=== PATIENT | female | born 1950 | race Hispanic/Latino ===

== ENCOUNTER 2022-01-30 12:13 | Observation (INO) | payer MEDICARE, BC ==
[~2022-01-30] VITALS: Ht 152.4 cm; Wt 60.0 kg
[2022-01-30] VITALS (13 sets, daily range): BP systolic 144–239; BP diastolic 65–133
[2022-01-30 13:44] LABS: HEMATOCRIT 38.1 % (37.0-47.0); HEMOGLOBIN 13.6 g/dl (12.0-16.0); IMMATURE GRANULOCYTES 0.1 % (0.0-5.0); MEAN CELL VOLUME 82.1 fL CALC (80.0-100.0); MEAN CORPUSCULAR HGB 29.3 pG CALC (26.0-32.0); MEAN CORPUSCULAR HGB CONC 35.7 g/dL CAL (32.0-36.0); NEUT# 5.12 thou/uL (2.00-7.15); RED BLOOD COUNT 4.64 mill/uL (4.20-5.60)
[2022-01-30 13:51] LABS: ALKALINE PHOSPHATASE 51 u/l (38-126); ANION GAP 16 (6-22 (CALC)); BILIRUBIN, TOTAL 0.7 mg/dL (0.0-1.4); BUN 11 mg/dL (8-23); BUN/CREATININE RATIO 23 (12-20 (CALC)); CARBON DIOXIDE 25 mmol/l (22-30); CHLORIDE 104 mmol/l (95-108); CREATININE 0.5 mg/dL (0.5-1.0); GFR > 60 ML/MIN (>=60 (CALC)); GFR FOR AFR.AMER. > 60 ML/MIN (>=60 (CALC)); POTASSIUM 3.8 mmol/l (3.5-5.1); SGOT/AST 38 u/l (9-36); SODIUM 141 mmol/l (137-146); TOTAL PROTEIN 7.5 g/dL (6.3-8.2)
[2022-01-30 13:52] LABS: ALBUMIN 4.5 g/dL (3.2-5.0)
[2022-01-30 14:03] LABS: MYOGLOBIN 14 ng/mL (0 - 62)
[2022-01-30 14:15] LABS: URINE BILIRUBIN - DIPSTICK NEGATIVE (NEGATIVE); URINE BLOOD DIPSTICK NEGATIVE (NEGATIVE); URINE COLOR YELLOW; URINE GLUCOSE - DIPSTICK NEGATIVE (NEGATIVE); URINE KETONE NEGATIVE (NEGATIVE); URINE LEUK ESTERASE NEGATIVE (NEGATIVE); URINE PROTEIN - DIPSTICK NEGATIVE (NEG-TRACE); URINE SPECIFIC GRAVITY <=1.005; URINE UROBILINOGEN - DIPSTICK 0.2 E.U./dL (0.2)
[2022-01-30 14:16] LABS: URINE NITRITE - DIPSTICK NEGATIVE (Negative)
[2022-01-30] MEDS ORDERED: METOPROL TAR25 MG PO (14:27)
[2022-01-30] MEDS ORDERED: LIPITOR40 M1 PO (14:27)
[2022-01-30] MEDS ORDERED: ISOSORB MONO30 MG PO (14:28)
[2022-01-30] MEDS ORDERED: GLIPIZIDE ER10 M1 PO (14:29)
[2022-01-30] MEDS ORDERED: CLOPIDOGREL75 MG PO (14:29)
[2022-01-30] MEDS ORDERED: LOSARTAN POTASS50 MG PO (14:30)
[2022-01-30] MEDS ORDERED: METFORMIN500 M2 PO (14:31)
[2022-01-30] MEDS ORDERED: LYLLANA TD (14:33)
[2022-01-31] VITALS: BP 129/55
[2022-01-31 03:14] VITALS: BP 131/53
[2022-01-31 05:20] LABS: HEMATOCRIT 33.5 % (37.0-47.0); HEMOGLOBIN 12.1 g/dl (12.0-16.0); MEAN CELL VOLUME 82.1 fL CALC (80.0-100.0); MEAN CORPUSCULAR HGB 29.7 pG CALC (26.0-32.0); MEAN CORPUSCULAR HGB CONC 36.1 g/dL CAL (32.0-36.0); RED BLOOD COUNT 4.08 mill/uL (4.20-5.60); RED CELL DISTRI WIDTH 16.9 % (11.5-15.5)
[2022-01-31 05:47] LABS: ANION GAP 12 (6-22 (CALC)); BUN 12 mg/dL (8-23); BUN/CREATININE RATIO 24 (12-20 (CALC)); CARBON DIOXIDE 27 mmol/l (22-30); CHLORIDE 104 mmol/l (95-108); CREATININE 0.5 mg/dL (0.5-1.0); GFR > 60 ML/MIN (>=60 (CALC)); GFR FOR AFR.AMER. > 60 ML/MIN (>=60 (CALC)); POTASSIUM 4.1 mmol/l (3.5-5.1); SODIUM 139 mmol/l (137-146)
[2022-01-31 07:00] VITALS: BP 177/71
[2022-01-31 07:08] VITALS: BP 177/71
[2022-01-31 10:42] VITALS: BP 132/69
== END 2022-01-31 10:00 | disposition home or self-care (01) ==
LOC: ED 12:13 → ED-I 14:50 → ED 15:13 → MS2 15:14
PROVIDERS: Nurse Practitioner; ADMIT Hospitalist; ATTEND Hospitalist
DX: I16.0 Hypertensive urgency (principal); I10 Essential (primary) hypertension; E11.9 Type 2 diabetes mellitus without complications; I25.10 Atherosclerotic heart disease of native coronary artery without angina pectoris; Z95.5 Presence of coronary angioplasty implant and graft; Z79.84 Long term (current) use of oral hypoglycemic drugs; Z79.890 Hormone replacement therapy; Z20.822 Contact with and (suspected) exposure to COVID-19
CPT/HCPCS: G0378